=== PATIENT | female | born 1975 | race Caucasian/White ===

== ENCOUNTER 2024-03-09 09:04 | Outpatient (CLI) | payer OTHER, SELFPAY | END 2024-03-09 09:05 | disposition home or self-care (01) | PROVIDERS: PCP Physician Assistant Medical; Visit Provider Physician Assistant Medical | DX: R03.0 Elevated blood-pressure reading, without diagnosis of hypertension (principal); Z13.220 Encounter for screening for lipoid disorders; Z13.29 Encounter for screening for other suspected endocrine disorder | CPT/HCPCS: 80053; 80061; 84443 ==

== ENCOUNTER 2024-04-05 19:34 | Outpatient (CLI) | payer OTHER, SELFPAY ==
--- OUTSIDE RECORDS SUMMARY | 2024-04-05 19:37 | XMS_ITS | Referral Summary ---
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
--- OUTSIDE RECORDS SUMMARY | 2024-04-05 19:37 | XMS_ITS | Clinical Summary ---
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
--- NOTE | 2024-04-18 12:34 | W.PM.SLEEP ---
Sleep Study Details Details Interpreting Provider: Sudha Date of Sleep Study: 04/05/24 Sleep Study Details: STUDY TYPE:? Home unattended ? BMI:? 35.1 ORDERING PROVIDER:? Sudha INDICATION:? Concern about sleep apnea ? SLEEP SUMMARY:? 425 minutes monitored RESPIRATORY SUMMARY:? AHI 47.7, supine 80.9, left lateral 49, right lateral 39.7 Low oxygen 76 5.5% of study oxygen less than 90% Snoring 81% PERIODIC LIMB MOVEMENTS OF SLEEP:? Not recall CARDIAC:? Range 49-106, mean 75.9 IMPRESSION:? Severe obstructive sleep apnea with supine position dependency but severe in all positions. RECOMMENDATION: 6 treatment options include CPAP. Weight loss may be of some benefit.
== END 2024-04-05 19:35 | disposition home or self-care (01) ==
LOC: SLEEP 19:36
PROVIDERS: PCP Physician Assistant Medical; Visit Provider Otolaryngology
DX: G47.33 Obstructive sleep apnea (adult) (pediatric) (principal)
CPT/HCPCS: 95806

== ENCOUNTER 2024-05-09 22:40 | Outpatient (REF) | payer OTHER, SELFPAY ==
--- OUTSIDE RECORDS SUMMARY | 2024-05-09 22:43 | XMS_ITS | Referral Summary ---
Author Organization [facility] Address [address] [place] [address] Care Team Providers Care Jump Roll Operator Name Role Phone Unavailable Primary Care Provider [...] Plan of Treatment Not on file Insurance [facility]
--- OUTSIDE RECORDS SUMMARY | 2024-05-09 22:43 | XMS_ITS | Clinical Summary ---
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
[2024-05-10 05:22] LABS: Ferritin* 66.2 ng/mL (11.1-264.0)
== END 2024-05-09 22:41 | disposition home or self-care (01) ==
LOC: NPLBINS 22:40
PROVIDERS: PCP Physician Assistant Medical; Visit Provider Dermatology
DX: L65.0 Telogen effluvium (principal)
CPT/HCPCS: 36415; 82728

== ENCOUNTER 2024-05-16 17:25 | Outpatient (CLI) | payer OTHER, SELFPAY ==
--- NOTE | 2024-05-16 17:40 | CRLHL7_ITS ---
For Patients: As a result of the Century Cures Act, medical imaging exams and procedure reports are released immediately into your electronic medical record. You may view this report before your referring provider. If you have questions, please contact your health care provider. BILATERAL SCREENING MAMMOGRAM WITH COMPUTER-AIDED DETECTION AND TOMOSYNTHESIS TECHNIQUE: CC and MLO views were obtained. These mammographic images have been obtained using full-field digital technique. These mammographic images were interpreted with the benefit of computer-aided detection. Breast Tomosynthesis was used in this interpretation. COMPARISON FILM: 10/23/20. FINDINGS: The breasts are almost entirely fatty. IMPRESSION: There is no radiographic evidence for malignancy. ASSESSMENT: BI-RADS Category 1: Negative RECOMMENDATION: Routine screening mammogram in 1 year. A lay language report of this examination will be provided to the patient. Pasquale Larios M.D. Diagnostic Radiologist [email or web address] SP/Dictated by: Pasquale Larios MD @ 05/18/2024 12:30:00 PM (Electronically Signed)
== END 2024-05-16 17:26 | disposition home or self-care (01) ==
LOC: MAMMO 17:26
PROVIDERS: PCP Physician Assistant Medical; Visit Provider Physician Assistant Medical
DX: Z12.31 Encounter for screening mammogram for malignant neoplasm of breast (principal)
CPT/HCPCS: 77063; 77067

== ENCOUNTER 2025-03-22 07:59 | Outpatient (CLI) | payer OTHER, SELFPAY | END 2025-03-22 08:00 | disposition home or self-care (01) | LOC: NFLDREF 03-24 17:28 | PROVIDERS: PCP Physician Assistant Medical; Referring Provider Physician Assistant Medical; Visit Provider Physician Assistant Medical | DX: Z00.00 Encounter for general adult medical examination without abnormal findings (principal); I10 Essential (primary) hypertension | CPT/HCPCS: 80053; 80061; 84443 ==

== ENCOUNTER 2025-05-22 17:06 | Outpatient (CLI) | payer OTHER, SELFPAY ==
--- NOTE | 2025-05-22 17:20 | CRLHL7_ITS ---
For Patients: As a result of the Cures Act, medical imaging exams and procedure reports are released immediately into your electronic medical record. You may view this report before your referring provider. If you have questions, please contact your health care provider. INDICATION: BILATERAL SCREENING MAMMOGRAM, ASYMPTOMATIC 49 Y/O FEMALE COMPARISON: 05/16/2024, 10/23/2020 TECHNIQUE: Digital mammogram in CC and MLO projections including computer-aided detection (CAD) and tomosynthesis. BREAST COMPOSITION: The breasts are almost entirely fatty. FINDINGS: No suspicious findings. ASSESSMENT: BI-RADS 1 Negative RECOMMENDATION: Annual screening mammogram. A lay language report of this examination will be provided to the patient. Dictated by: Berenice Gaviria MD @ 05/24/2025 07:44:20 (Electronically Signed)
== END 2025-05-22 17:07 | disposition home or self-care (01) ==
LOC: MAMMO 17:06
PROVIDERS: PCP Physician Assistant Medical; Visit Provider Physician Assistant Medical
DX: Z12.31 Encounter for screening mammogram for malignant neoplasm of breast (principal)
CPT/HCPCS: 77063; 77067